=== PATIENT | female | born 1985 | race Caucasian/White ===

== ENCOUNTER 2016-09-15 08:32 | Emergency (ER) | payer OTHER ==
[2016-09-15] MEDS ORDERED: Bacitracin Oint 1 GM U/D Packet TOP ONE (08:49)
[2016-09-15] MEDS ORDERED: Ketorolac 60 MG/2 ML SDV IM ONE (08:49)
[2016-09-15] MEDS ORDERED: Diphtheria,Pertussis(Acell),Tetanus Vaccine 0.5 ML Syringe IM ONE (08:49)
[2016-09-15] MEDS ORDERED: Ondansetron 4 MG Tab.DIS PO ONE (08:49)
--- NOTE | 2016-09-15 08:53 | EDM.PDOC ---
ED HPI Skin/Rash - General Chief Complaint: Laceration Stated Complaint: FALL Time Seen by Provider: 09/15/16 08:42 - History of Present Illness INITIAL COMMENTS - FREE TEXT/NARRATIVE: HISTORY AND PHYSICAL: History of present illness: The patient is a 31-year-old female who was in her usual state of good health when she tripped at home landing on her knees her hands and her face just prior to coming to the ER. She did not pass out or black out and has no neck or back pain but does complain of bilateral knee pain slight hand pains and facial pain. The patient says she has had some nausea but no vomiting and has no neurosensory changes in her extremities. She said she just tripped and fell when this occurred. The patient complains of nasal pain and pain at the chin but has no tooth loss or blurred vision. She denies any pre-existing systemic complaints that could of triggered the fall other than tripping. Review of systems: As per history of present illness and below otherwise all systems reviewed and negative. Past medical history: As per history of present illness and as reviewed below otherwise noncontributory. Surgical history: As per history of present illness and as reviewed below otherwise noncontributory. Social history: No reported history of drug or alcohol abuse. Family history: As per history of present illness and as reviewed below otherwise noncontributory. Physical exam: General: Well-developed overweight female who is nontoxic and speaking clearly and easily in the ED. HEENT: normocephalic, pupils reactive, EOMs intact negative for conjunctival pallor or scleral icterus, mucous membranes moist, throat clear, neck supple, nontender, trachea midline. Her are no midline step-offs tenderness defects of the cervical spine. TMs are normal bilaterally and there is some old nasal blood in the right knee area he. There is visible swelling of the nasal bridge as well as the middle of the forehead and chin with tenderness in these areas with skin abrasions and tissue loss in all these locations. There are no specific lacerations identified There is no discrete mandible or maxillary tenderness and bite is normal and teeth are normal. Lungs: Clear to auscultation, breath sounds equal bilaterally, chest nontender. Heart: S1S2, regular, negative for clicks, rubs, or JVD. Abdomen: Soft, nondistended, nontender. NABS Genitourinary: Deferred. Rectal: Deferred. Extremities: Atraumatic except for very superficial abrasions on bilateral knees with soft tissue tenderness but no palpable deformities bilaterally. There is also some slight tenderness at palpation of the left palm but no abrasions or deformities are seen there. Full range of motion of all extremities. The legs are, negative for cords or calf pain. Neurovascular unremarkable. Neuro: Awake, alert, oriented. Cranial nerves II through XII unremarkable. Cerebellum unremarkable. Motor and sensory unremarkable throughout. Exam nonfocal. Back: There are no midline step-offs tenderness defects the thoracic or lumbar spine and no posterior pelvic tenderness Diagnostics: CT scan of the face Therapeutics: Tdap, wound care with cleansing and bacitracin, Zofran, Toradol Patient is aware of testing results and she will be prescribed Keflex prophylactically and has been advised on her cautions with nasal blowing. I will advise her to followup with plastic surgery once the swelling goes down if indicated and were rest [id number] pain meds and ice to all areas that hurt Impression: Fall with facial contusions and abrasions ,right nasal bone fracture nondisplaced, bilateral knee contusions Definitive disposition and diagnosis as appropriate pending reevaluation and review of above. - Related Data Allergies Allergy/AdvReac Type Severity Reaction Status Date / Time No Known Allergies Allergy Verified 09/15/16 08:45 Home Meds: Ambulatory Orders Medication Instructions Recorded Confirmed . [No Known Home Meds] 09/15/16 09/15/16 Past Medical History - Past Health History Medical/Surgical History: Denies Medical/Surgical History - Infectious Disease History Infectious Disease History: Reports: Influenza Social & Family History - Family History Family Medical History: Noncontributory - Tobacco Use Smoking Status *Q: Never Smoker - Recreational Drug Use Recreational Drug Use: No ED ROS GENERAL - Review of Systems Review Of Systems: ROS reveals no pertinent complaints other than HPI. ED EXAM, SKIN/RASH Exam: See Below (See dictation) Course - Vital Signs Last Recorded V/S: Last Vital Signs Temp 36.6 C 09/15/16 08:43 Pulse 80 09/15/16 08:43 Resp 18 09/15/16 08:43 BP 162/86 H 09/15/16 08:43 Pulse Ox 96 09/15/16 08:43 - Orders/Labs/Meds Orders: Active Orders 24 hr Category Date Time Status Vaccines to be Administered [RC] PER UNIT ROUTINE Care 09/15/16 08:49 Active Meds: Medications Discontinued Medications Generic Name Dose Route Start Last Admin Trade Name Malissa PRN Reason Stop Dose Admin Bacitracin 1 dose 09/15/16 08:49 09/15/16 09:02 Bacitracin Oint 1 Gm TOP 09/15/16 08:50 1 dose ONETIME ONE Administration Diphtheria/Tetanus/Acell Pertussis 0.5 ml 09/15/16 08:49 09/15/16 09:03 Adacel IM 09/15/16 08:50 0.5 ml .ONCE ONE Administration Ketorolac Tromethamine 60 mg 09/15/16 08:49 09/15/16 09:03 Toradol IM 09/15/16 08:50 60 mg ONETIME ONE Administration Ondansetron HCl 4 mg 09/15/16 08:49 09/15/16 09:02 Zofran Odt PO 09/15/16 08:50 4 mg ONETIME ONE Administration Departure - Departure Time of Disposition: 10:32 Disposition: Home, Self-Care 01 Condition: good Clinical Impression: Nasal bone fracture Qualifiers: Encounter type: initial encounter Fracture type: closed Qualified Code(s): S02.2XXA - Fracture of nasal bones, initial encounter for closed fracture Abrasion of face Qualifiers: Encounter type: initial encounter Qualified Code(s): S00.81XA - Abrasion of other part of head, initial encounter Knee contusion Qualifiers: Encounter type: initial encounter Laterality: unspecified laterality Qualified Code(s): S80.00XA - Contusion of unspecified knee, initial encounter Forms: ED Department Discharge Additional Instructions: The following information is given to patients seen in the emergency department who are being discharged to home. This information is to outline your options for follow-up care. We provide all patients seen in our emergency department with a follow-up referral. The need for follow-up, as well as the timing and circumstances, are variable depending upon the specifics of your emergency department visit. If you don't have a primary care physician on staff, we will provide you with a referral. We always advise you to contact your personal physician following an emergency department visit to inform them of the circumstance of the visit and for follow-up with them and/or the need for any referrals to a consulting specialist. The emergency department will also refer you to a specialist when appropriate. This referral assures that you have the opportunity for followup care with a specialist. All of these measure are taken in an effort to provide you with optimal care, which includes your followup. Under all circumstances we always encourage you to contact your private physician who remains a resource for coordinating your care. When calling for followup care, please make the office aware that this follow-up is from your recent emergency room visit. If for any reason you are refused follow-up, please contact the [facility] emergency department at and ask to speak to the emergency department charge nurse. [facility] Specialty clinic-Plastic Surgery and Hand Surgery Professional Building [address] [place] [address] [address] [place] [address] [facility] Primary care- Internal Medicine and Family [facility] [address] [place] [id number] These expect aches and pains for next few days to one week and apply ice to areas of swelling and pain. Keep wounds clean and dry with mild soap and water pat dry and apply bacitracin or Neosporin. These take the Keflex prescribed until it is finished. Do not blow nose or manipulate the nose. Please call for followup as we discussed and return to ER as needed and as discussed - My Orders Last 24 Hours: My Active Orders 09/15/16 08:49 Vaccines to be Administered [RC] PER UNIT ROUTINE - Assessment/Plan Last 24 Hours: My Active Orders 09/15/16 08:49 Vaccines to be Administered [RC] PER UNIT ROUTINE
--- NOTE | 2016-09-15 10:24 | CT ---
EXAMINATION: CT facial bones HISTORY: Pain COMPARISON: None TECHNIQUE: Axial CT images obtained through the facial bones without contrast. Coronal and sagittal reconstructions obtained. FINDINGS: Nondisplaced right nasal bone fractures noted. The maxillary and orbital welsh appear inta ct. There is mild leftward deviation of the nasal septum with a tiny spur. There are small jeancarlos bu llosa noted within the middle terminates. The zygomatic arches and pterygoid plates are intact. The mandible is intact. The upper cervical spine is normal. The paranasal sinuses are grossly clear. No air-fluid levels. The middle ears and mastoid air cells are clear. Bone mineralization is well. The orbits and globes are symmetric. Multiple tiny nonpathologically enlarged cervical chain lymph node s noted. IMPRESSION: 1. Nondisplaced right nasal bone fractures.
[2016-09-15 10:47] VITALS: BP 168/86
== END 2016-09-15 10:45 | disposition home or self-care (01) ==
LOC: MW.ED 08:32
DX: S02.2XXA Fracture of nasal bones, initial encounter for closed fracture (principal); S00.81XA Abrasion of other part of head, initial encounter; S80.00XA Contusion of unspecified knee, initial encounter; W01.0XXA Fall on same level from slipping, tripping and stumbling without subsequent striking against object, initial encounter
CPT/HCPCS: 70486; 90471; 90715; 96372; 99283; A9270; J1885